=== PATIENT | female | born 1980 | race Caucasian/White ===

== ENCOUNTER 2017-03-27 15:32 | Inpatient (IN) | payer OTHER ==
[~2017-03-27] VITALS: Ht 152.4 cm; Wt 65.0 kg
[2017-03-27] MEDS ORDERED: OXYTOCIN 30 UNITS/LACT RINGERS 500 ML IV ONE (16:22)
[2017-03-27] MEDS ORDERED: RINGERS SOLUTION,LACTATED 1,000 ML IV PRN (16:22)
[2017-03-27] MEDS ORDERED: RINGERS SOLUTION,LACTATED 1,000 ML IV SCH (16:22)
[2017-03-27] MEDS ORDERED: CITRIC ACID/SODIUM CITRATE 30 ML SOLUTION UDCUP PO PRN (16:30)
[2017-03-27] MEDS ORDERED: LIDOCAINE HCL/PF 1% 30 ML VIAL INJ PRN ×2 (16:30→18:30)
[2017-03-27] MEDS ORDERED: METOCLOPRAMIDE HCL 5 MG/ML 2 ML VIAL IVP PRN (16:30)
[2017-03-27] MEDS: FentaNYL CITRATE-PF 100 MCG/2 ML VIAL IVP PRN ×2 (16:39→16:43)
[2017-03-27] MEDS ORDERED: FentaNYL/BUPIV 0.125%/NS/PF 200 ML ED ONE (16:47)
[2017-03-27] MEDS ORDERED: BUPIVACAINE HCL/PF 0.25% 30 ML VIAL ONE (16:49)
[2017-03-27 17:02] LABS: HEMATOCRIT 30.2 % (36-46); MEAN CORPUSCULAR HEMOGLOBIN 32.2 pg (26.0-34.0); MEAN CORPUSCULAR HGB CONC 33.1 G/dL (31.0-37.0); MEAN CORPUSCULAR VOLUME 97 fL (80-100); RED BLOOD CELL COUNT(AUTO) 3.11 MIL/uL (4.00-5.20); RED CELL DISTRIBUTION WIDTH 14.7 % (11.5-14.5); WHITE BLOOD COUNT (AUTO) 9.6 K/uL (4.5-11.0)
[2017-03-27] MEDS ORDERED: FentaNYL/BUPIV 0.125%/NS/PF 200 ML ED PRN (17:27)
[2017-03-27] MEDS ORDERED: DiphenhydrAMINE HCL 50 MG/ML VIAL IVP PRN (17:30)
[2017-03-27] MEDS ORDERED: ONDANSETRON HCL 4 MG/2 ML VIAL IVP PRN (17:30)
[2017-03-27 17:43] LABS: BAND NEUTROPHILS % (MANUAL) 4 % (1-5); EOSINOPHILS % (MANUAL) 1 % (1-6); LYMPHOCYTES % (MANUAL) 23 % (22-44); TOTAL CELLS COUNTED 100
[2017-03-27 17:46] LABS: RBC MORPHOLOGY COMMENT ABNORMAL RBC MORPH
[2017-03-27] MEDS ORDERED: prenatal vit PO (17:57)
[2017-03-27] MEDS ORDERED: RINGERS SOLUTION,LACTATED 1,000 ML IV ONE (18:16)
[2017-03-27] MEDS ORDERED: PREN-134 PO (18:20)
[2017-03-27] MEDS ORDERED: OxyCODONE HCL/ACETAMINOPHEN 5-325 MG TABLET PO PRN (18:30)
[2017-03-27] MEDS ORDERED: GLYCERIN/WITCH HAZEL LEAF 40 PADS JAR TP PRN (18:30)
[2017-03-27 19:24] VITALS: BP 131/82
[2017-03-27] MEDS ORDERED: OXYGEN THERAPY IH SCH (20:00)
[2017-03-27] MEDS: SENNA/DOCUSATE SODIUM 187-50 MG TABLET PO SCH (22:47)
[2017-03-27] MEDS: IBUPROFEN 600 MG TABLET PO PRN (23:38)
[2017-03-28] MEDS: OxyCODONE HCL/ACETAMINOPHEN 5-325 MG TABLET PO PRN ×2 (00:37→05:21)
[2017-03-28 07:09] LABS: BASOPHILS % (AUTO) 0.2 % (0.0-2.0); EOSINOPHILS % (AUTO) 0.1 % (1.0-6.0); HEMATOCRIT 25.1 % (36-46); HEMOGLOBIN 8.4 g/dL (12.0-16.0); LYMPHOCYTES # (AUTO) 2.1 K/uL (1.0-4.8); LYMPHOCYTES % (AUTO) 20.7 % (22.0-44.0); MEAN CORPUSCULAR HEMOGLOBIN 32.8 pg (26.0-34.0); MEAN CORPUSCULAR HGB CONC 33.4 G/dL (31.0-37.0); MEAN CORPUSCULAR VOLUME 98 fL (80-100); MONOCYTES # (AUTO) 0.7 K/uL (0.1-1.0); MONOCYTES % (AUTO) 6.6 % (2.0-9.0); NEUTROPHILS # (AUTO) 7.5 K/uL (1.8-7.7); NEUTROPHILS % (AUTO) 72.4 % (40.0-70.0); RED BLOOD CELL COUNT(AUTO) 2.56 MIL/uL (4.00-5.20); RED CELL DISTRIBUTION WIDTH 14.6 % (11.5-14.5); WHITE BLOOD COUNT (AUTO) 10.3 K/uL (4.5-11.0)
[2017-03-28 09:11] LABS: RBC MORPHOLOGY COMMENT ABNORMAL RBC MORPH
[2017-03-28] MEDS: SENNA/DOCUSATE SODIUM 187-50 MG TABLET PO SCH (09:57)
[2017-03-28 10:47] LABS: PLATELET COUNT (MANUAL) 56 K/uL (150-450)
[2017-03-28] MEDS: IBUPROFEN 600 MG TABLET PO PRN (12:42)
[2017-03-28] MEDS ORDERED: PERCT PO (13:37)
[2017-03-28] MEDS ORDERED: IBUP-2070 PO (13:39)
[2017-03-28] MEDS ORDERED: DSS100 PO (13:41)
[2017-03-28 22:35] LABS: RUBELLA SCREEN (IGG) IMMUNE (IMMUNE)
== END 2017-03-28 19:20 | disposition home or self-care (01) | DRG 775 ==
LOC: EDBD 15:32 → 4S 15:32 → OBSVTOIN 15:32
PROVIDERS: ADMIT Specialist; ATTEND Specialist
PROC: 10E0XZZ Delivery of Products of Conception, External Approach (ICD-10-PCS; principal; 2017-03-27)
PROC: 0KQM0ZZ Repair Perineum Muscle, Open Approach (ICD-10-PCS; 2017-03-27)
PROC: 3E0S3CZ (ICD-10-PCS; 2017-03-27)
PROC: 00HU33Z Insertion of Infusion Device into Spinal Canal, Percutaneous Approach (ICD-10-PCS; 2017-03-27)
DX: O69.81X0 Labor and delivery complicated by cord around neck, without compression, not applicable or unspecified (principal); O70.1 Second degree perineal laceration during delivery; O09.523 Supervision of elderly multigravida, third trimester; Z3A.37 37 weeks gestation of pregnancy; Z37.0 Single live birth
CPT/HCPCS: 85032; 86592; 86762; 86850; 86900; 86901; 87340; J2590; J3010; J3490; J7120